=== PATIENT | female | born 1985 | race Caucasian/White ===

== ENCOUNTER 2016-09-11 15:05 | Emergency (ER) | payer SELFPAY ==
[2016-09-11 15:29] VITALS: BP 122/77
== END 2016-09-11 15:40 | disposition left against medical advice (07) ==
LOC: ED 15:05
DX: O26.892 Other specified pregnancy related conditions, second trimester (principal); R10.9 Unspecified abdominal pain; Z3A.17 17 weeks gestation of pregnancy; Z53.21 Procedure and treatment not carried out due to patient leaving prior to being seen by health care provider